=== PATIENT | male | born 1995 | race Caucasian/White ===

== ENCOUNTER 2024-03-27 18:44 | Emergency (ER) | payer SELFPAY ==
[~2024-03-27] VITALS: Ht 188 cm; Wt 87.2 kg
[2024-03-27 19:18] VITALS: BP 159/93; PULSE 59; RESP 18; TEMP 97.8; O2SAT 99
[2024-03-27] MEDS: LIDOCAINE MPF 1% 10 MG/ML VIAL INJ ONE (19:58)
[2024-03-27] MEDS: BACITRACIN OINT 500 UNITS/GM PKT TP ONE (19:59)
== END 2024-03-27 20:40 | disposition home or self-care (01) ==
LOC: MED 18:44
DX: S61.214A Laceration without foreign body of right ring finger without damage to nail, initial encounter (principal); Z79.899 Other long term (current) drug therapy; W26.8XXA Contact with other sharp object(s), not elsewhere classified, initial encounter; Y93.89 Activity, other specified; Y92.89 Other specified places as the place of occurrence of the external cause; Y99.8 Other external cause status
CPT/HCPCS: 12001; 99282; J2001